=== PATIENT | female | born 1955 | race Caucasian/White ===

== ENCOUNTER 2024-12-01 03:39 | Emergency (ER) | payer BC, MEDICARE, SELFPAY ==
[2024-12-01 03:50] VITALS: BP 165/92
[2024-12-01 04:12] LABS: % Basophils 0.9 % (0-2); % Eosinophils 6.3 % (0-6); % Immature Granulocytes 0.2 % (0-0.5); % Lymphocytes 29.8 % (20.5-51.1); % Monocytes 6.6 % (1.7-9.3); % Neutrophils 56.2 % (42.2-75.2); Absolute Basophils 0.1 10^3/uL (0-0.2); Absolute Eosinophils 0.4 10^3/uL (0-0.7); Absolute Lymphocytes 1.9 10^3/uL (1.2-3.4); Absolute Monocytes 0.4 10^3/uL (0.1-0.6); Absolute Neutrophils 3.6 10^3/uL (1.4-6.5); Hematocrit 38.5 % (37.0-47.0); Hemoglobin 13.4 g/dL (12.0-16.0); Mean Corp Hgb Conc. 34.8 g/dL (33.0-37.0); Mean Corpuscular Hgb 29.3 pg (27.0-31.0); Mean Corpuscular Volume 84.1 fL (81.0-99.0); Mean Platelet Volume 10.2 fL (7.4-10.4); Nucleated Red Blood Cells % 0 %; Platelet Count 174 10^3/uL (130-400); Red Blood Cell Count 4.58 10^6/uL (4.20-5.40); Red Cell Dist. Width 12.3 % (11.5-14.5); White Blood Cell Count 6.4 10^3/uL (4.8-10.8)
[2024-12-01 04:47] LABS: ALT (SGPT) 23 U/L (0-35); AST (SGOT) 22 U/L (14-36); Albumin 4.5 g/dl (3.5-5.0); Alkaline Phosphatase 85 U/L (38-126); Blood Urea Nitrogen 14 mg/dl (7-17); Calcium 9.2 mg/dl (8.4-10.2); Carbon Dioxide 27 mmol/L (22-30); Chloride 99 mmol/L (98-107); Glucose 120 mg/dl (70-99); Potassium 4.1 mmol/L (3.5-5.1); Sodium 136 mmol/L (135-145); Total Bilirubin 0.9 mg/dl (0.2-1.3); Total Protein 7.1 g/dl (6.3-8.2); eGFR > 60.00
--- NOTE | 2024-12-01 06:45 | ED.GENMED ---
History of Present Illness
General
Chief Complaint: Anxiety
Source: patient and spouse
Exam Limitations: none
Time Seen by Provider: 12/01/24 06:33
Nursing documentation reviewed up to this point in time: agreed with
History of Present Illness
History of Present Illness:
68-year-old female history of panic attacks use Ativan as needed, recently left lower toothache started on amoxicillin by her dentist, developed sinus congestion with some drainage went to bed feeling okay no alcohol did have some iced tea, woke up
around 130 or 2 some vague discomfort into her bilateral arms felt like air was coming out of her arms, felt panicky but different than her prior panic attacks took an Ativan and now is feeling better had no fever no abdominal pain no calf pain
Past History
Past History
ED Past Medical History: GERD, Other (anxiety), Other (IBS) and Other (MENG)
ED Past Surgical History: Negative Cardiac
Social History
Tobacco: Non-smoker
Alcohol: None
Drug: None
Personal:
Living: with family
Employment: Employed
Review of Systems
Review of Systems
All Other Systems: Not applicable
Constitutional: Denies fever or fatigue
EENT: Reports other (Sinus congestion left lower toothache)
Respiratory: Denies cough
Cardiac: Denies chest pain
ABD/GI: Reports no symptoms
: Reports no symptoms
Musculoskeletal: Reports muscle stiffness
Neurological: Reports weakness; Denies dizzy or headache
Endocrine: Reports no symptoms
Psychiatric: Reports anxiety; Denies depression
Phy Exam
Physical Exam
Physical Exam:
Physical Exam
General: no apparent distress, not acutely ill
Neck: No pain with flexion of the neck, no trismus no intraoral abscess
Heart: s1/s2 regular rate and rhythm, no murmur. equal radial pulses.
Lungs: no acute respiratory distress. clear bilaterally
Abdomen: Not tender
Neuro: alert and oriented. no focal neurological deficits
Skin: no rash
Psychiatric: well kept. interactive and cooperative
Extremities: no edema. no calf tenderness.
Course
Orders/Labs/Results
Orders:
Orders
12/01/24 03:51
Electrocardiogram (*1) Urgent
Reason for Study: Shortness of Breath
EKG- Treatment ONCE
12/01/24 04:03
CMP [Comprehensive Metabolic Panel] Urgent
Complete Blood Count/With Diff Urgent
12/01/24 06:43
CR Chest - 2 Views Urgent
Comment:
Reason For Exam: arm pain
12/01/24 07:18
Troponin I Urgent
12/01/24 07:25
COVID-19 Antigen Urgent
Source: Nasal Swab
Influenza A+B Rapid Molecular Urgent
RASHIDA Source: Nasal Swab
Specimen Description:
Abnormal Lab Results
12/01/24
04:03
Eosinophils % 6.3 H %
(0-6)
Glucose 120 H mg/dl
(70-99)
12/01/24 04:03
12/01/24 04:03
Vital Signs
Initial and Last Documented VS:
Initial Vital Signs
Temp Pulse Resp Pulse Ox
97.6 F 78 22 97
12/01/24 03:47 12/01/24 03:47 12/01/24 03:47 12/01/24 03:47
Last Documented Vital Signs
Temp Pulse Resp BP Pulse Ox
97.6 F 66 17 165/92 98
12/01/24 03:47 12/01/24 07:15 12/01/24 07:15 12/01/24 03:50 12/01/24 07:15
MDM/Problems Addressed
Differential Diagnosis Includes:
Anxiety, electrolyte abnormality arrhythmia conceivably ACS
MDM/Problems Addressed:
Bilateral arm discomfort, recent dental and sinus
Chronic conditions affecting care: Psychiatric illness
Acute Exacerbation and/or Progression of Chronic Illness: Psychiatric illness
*Radiology
Radiology exam reviewed: preliminary read by ED provider
*Pulse Oximetry
Patient hypoxic: no
*EKG
Interpreted by ED Provider?: Yes
Interpretation: normal
Comparison EKG: no comparison EKG present
Heart Rate: 78
Rate: normal
Ischemia: no ischemia
*Full Roll Inspector Interpretation
Rate: normal
Interpretation: normal
Heart Rate: 78
*Critical Care Note
Total Time (30-74mins, 75-104mins- exclusive of procedures): Not Applicable
Update Note
Update Note:
Update
8:20 AM patient feeling better ambulate without difficulty workup negative troponin drawn several hours after symptoms undetectable patient asymptomatic since she has been here
ED Attending Note
-
Portions of this chart may have been created with voice recognition software.� Occasional wrong word or��sound alike� substitutions may have occurred due to the inherent limitations of voice recognition software.
Discharge Plan
Departure
Patient Disposition: Home (Routine Discharge)
Date of Disposition: 12/01/24
Time of Disposition: 08:21
Patient with high blood pressure during this ER visit?: No
Condition: Good
Discharge Problem:
Pain, dental
Instructions: Panic Disorder (DC), Dental pain - ED discharge instructions
Prescriptions:
No Action
levothyroxine 100 MCG tablet
100 mcg PO DAILY
celecoxib 200 MG capsule
200 mg PO .EVERY OTHER DAY
omeprazole 40 MG capsule,delayed release(DR/EC)
40 mg PO DAILY
citalopram 20 MG tablet
60 mg PO HS
lorazepam 0.5 MG tablet
0.5 mg PO Q4HPRN PRN (Reason: anxiety)
chlordiazepoxide-methscopolamn 1 EACH capsule
1 cap PO PRN PRN (Reason: constipation)
coenzyme D60-lrrcevg E 1 CAP capsule
2 cap PO QPM
multivit with min-folic acid [Women's Multivitamin Gummies] 200 MCG tablet,chewable
200 mcg PO QPM
Probiotic Gummy
1 tab PO QPM
Referrals:
Tarsha Tovar CRNP [Family Provider] - Next open appointment
Interventions
Interventions:
*Risk Screen - Suicide Last Done: 12/01/24 03:47
*General Assessment Last Done: 12/01/24 07:10
*Neglect/Abuse Screening Last Done: 12/01/24 03:47
ED- Fall Risk Assessment Last Done: 12/01/24 07:10
*ED COVID-19 Vaccine History Last Done: 12/01/24 07:10
ED-EENT Assessment Last Done: 12/01/24 07:20
ED-Psychological Assessment Last Done: 12/01/24 07:10
ED- Pulmonary Assessment Last Done: 12/01/24 07:10
ED-Skin Assessment Last Done: 12/01/24 07:10
Discharge Date and Time
Print Language: SURINAMESE
[2024-12-01 07:49] LABS: COVID-19 Antigen Negative (Negative)
[2024-12-01 07:50] LABS: Troponin I < 0.012 ng/ml
== END 2024-12-01 08:45 | disposition home or self-care (01) ==
LOC: EMR 03:39
PROVIDERS: Emergency Medicine; EMERGENCY PHYSICIAN Emergency Medicine; FAMILY PHYSICIAN Nurse Practitioner Adult Health
DX: K08.89 Other specified disorders of teeth and supporting structures (principal); Z11.52 Encounter for screening for COVID-19; J01.90 Acute sinusitis, unspecified; F41.0 Panic disorder [episodic paroxysmal anxiety]; K21.9 Gastro-esophageal reflux disease without esophagitis; F41.9 Anxiety disorder, unspecified; K58.9 Irritable bowel syndrome, unspecified; G47.33 Obstructive sleep apnea (adult) (pediatric); Z88.8 Allergy status to other drugs, medicaments and biological substances
CPT/HCPCS: 99283; 71046; 80053; 84484; 85025; 87502; 87811; 93005

== ENCOUNTER → 2025-01-30 18:41 | Outpatient (REF) | payer BC, MEDICARE, SELFPAY | LOC: WDC 18:41 | PROVIDERS: ATTENDING PHYSICIAN Nurse Practitioner Adult Health | DX: Z12.31 Encounter for screening mammogram for malignant neoplasm of breast (principal) | CPT/HCPCS: 77063; 77067 ==